=== PATIENT | female | born 1970 | race Two or more races ===

== ENCOUNTER 2017-04-12 14:51 | Emergency (ER) | payer BC ==
[2017-04-12] MEDS: METHYLPREDNISOLONE 125 MG INJ IV (17:20)
[2017-04-12] MEDS: SOD CHLORIDE 0.9% 1,000 ML IV (17:20)
[2017-04-12 17:26] LABS: ADD MAN DIFF? NO
[2017-04-12 17:27] LABS: HEMATOCRIT 43.9 % (37.0-47.0); HEMOGLOBIN 14.2 g/dl (12.0-16.0); MEAN CORPUSCULAR HEMOGLOBIN 27.7 pg (29.0-33.0); MEAN CORPUSCULAR HGB CONC 32.3 g/dl (32.0-37.0); MEAN CORPUSCULAR VOLUME 85.7 fl (82.0-101.0); PLATELET COUNT 343 10^3/UL (140-415); RED BLOOD COUNT 5.12 10^6/ul (4.20-5.40); RED CELL DISTRIBUTION WIDTH 15.2 % (11.5-14.5)
[2017-04-12 17:27] LABS: WHITE BLOOD COUNT 7.4 10^3/ul (4.8-10.8)
[2017-04-12] MEDS: ALBUTEROL 0.083% (NEB) 2.5 MG/3 ML AMP HHN (17:27)
[2017-04-12] MEDS: IPRATROPIUM (NEB) 0.5 MG/2.5 ML AMP HHN (17:27)
[2017-04-12 17:39] LABS: POSITIVE DIFF @See below
[2017-04-12 17:47] LABS: ALANINE AMINOTRANSFERASE 99 IU/L (13-69); ALBUMIN 4.6 g/dl (3.3-4.9); ALBUMIN/GLOBULIN RATIO 1.39; ALKALINE PHOSPHATASE 73 IU/L (42-121); ANION GAP 18 (8-16); ASPARTATE AMINO TRANSFERASE 97 IU/L (15-46); BLOOD UREA NITROGEN 3 mg/dl (7-20); CALCIUM 8.5 mg/dl (8.4-10.2); CARBON DIOXIDE 27 mmol/L (21-31); CHLORIDE 100 mmol/L (97-110); CREATININE 0.63 mg/dl (0.44-1.00); GLUCOSE 127 mg/dl (70-220); POTASSIUM 3.4 mmol/L (3.5-5.1); SODIUM 142 mmol/L (135-144); TOTAL PROTEIN 7.9 g/dl (6.1-8.1)
[2017-04-12 18:01] LABS: TROPONIN-I < 0.012 ng/ml (0.00-0.12)
[2017-04-12 18:33] LABS: ANISOCYTOSIS 1+ (0-0); BAND NEUTROPHILS #M 0.7 10^3/ul (0.0-0.6); BAND NEUTROPHILS % (M) 10 % (0-4); BASOPHILS % (M) 1 % (0-2); EOSINOPHILS % (M) 4 % (0-7); LYMPHOCYTES #M 3.3 10^3/ul (0.8-2.9); LYMPHOCYTES % (M) 45 % (15-51); MONOCYTE #M 0.6 10^3/ul (0.3-0.9); MONOCYTES % (M) 9 % (0-11); PLATELET ESTIMATE NORMAL; POLYCHROMASIA 1+ (0-0); SEG NEUT #M 2.3 10^3/ul (1.7-7.5); SEGMENTED NEUTROPHILS (M) % 31 % (39-77); SMUDGE%M 8 % (0-0)
== END 2017-04-12 19:13 | disposition home or self-care (01) ==
LOC: FTE 14:51
DX: R05 Cough (principal); H93.8X2 Other specified disorders of left ear; R20.0 Anesthesia of skin; R53.1 Weakness; R07.89 Other chest pain; R11.10 Vomiting, unspecified; I10 Essential (primary) hypertension; F17.210 Nicotine dependence, cigarettes, uncomplicated
CPT/HCPCS: 36415; 71045; 80053; 84484; 85025; 93005; 94664; 96374; 99285-25

== ENCOUNTER 2018-09-12 00:19 | Inpatient (IN) | payer BC ==
[2018-09-12 00:48] LABS: ADD MAN DIFF? NO
[2018-09-12 00:53] LABS: BASOPHIL # 0.1 10^3/ul (0.0-0.1); BASOPHILS % 0.4 % (0.0-2.0); HEMATOCRIT 40.6 % (37.0-47.0); LYMPHOCYTES # 2.3 10^3/ul (0.8-2.9); LYMPHOCYTES % 17.4 % (15.0-51.0); MEAN CORPUSCULAR VOLUME 84.2 fl (82.0-101.0); MEAN PLATELET VOLUME 8.9 fl (7.4-10.4); MONOCYTE # 0.2 10^3/ul (0.3-0.9); MONOCYTES % 1.6 % (0.0-11.0); NEUTROPHIL # 10.8 10^3/ul (1.6-7.5); PLATELET COUNT 334 10^3/UL (140-415); RED BLOOD COUNT 4.82 10^6/ul (4.20-5.40)
[2018-09-12 00:53] LABS: WHITE BLOOD COUNT 13.5 10^3/ul (4.8-10.8)
[2018-09-12] MEDS: SODIUM CHLORIDE 0.9% 1L BAG IV* (00:53)
[2018-09-12] MEDS: CEFEPIME 2GM/50 ML (PMX) 50 ML IVPB (00:53)
[2018-09-12] MEDS: ACETAMINOPHEN 325 MG TAB PO ×2 (00:53→10:42)
[2018-09-12] MEDS: VANCOMYCIN 1 GM (PMX) 250 ML IVPB (01:00)
[2018-09-12 01:04] LABS: ADD UMIC YES; UR ASCORBIC ACID NEGATIVE (NEGATIVE); UR BACTERIA FEW /HPF (NONE SEEN); UR BILIRUBIN (Dip) NEGATIVE (NEGATIVE); UR BLOOD (Dip) 1+ mg/dL (NEGATIVE); UR CLARITY CLOUDY (CLEAR); UR COLOR YELLOW (YELLOW); UR GLUCOSE (Dip) NEGATIVE (NEGATIVE); UR KETONES (Dip) NEGATIVE (NEGATIVE); UR LEUKOCYTE ESTERASE (Dip) 3+ Leu/ul (NEGATIVE); UR NITRITE (Dip) NEGATIVE (NEGATIVE); UR RBC 12 /HPF (0-5); UR SPECIFIC GRAVITY (Dip) 1.013 (1.003-1.030); UR SQUAMOUS EPITHELIAL CELL FEW /HPF (FEW); UR TOTAL PROTEIN (Dip) 2+ mg/dl (NEGATIVE); UR UROBILINOGEN (Dip) NEGATIVE (NEGATIVE); UR WBC > 182 /HPF (0-5)
[2018-09-12 01:12] LABS: ALANINE AMINOTRANSFERASE 17 IU/L (13-69); ALBUMIN 4.7 g/dl (3.3-4.9); ALBUMIN/GLOBULIN RATIO 1.27; ALKALINE PHOSPHATASE 66 IU/L (42-121); ANION GAP 12 (5-13); ASPARTATE AMINO TRANSFERASE 18 IU/L (15-46); BILIRUBIN,INDIRECT 0.6 mg/dl (0-1.1); BILIRUBIN,TOTAL 0.6 mg/dl (0.2-1.3); BLOOD UREA NITROGEN 9 mg/dl (7-20); CALCIUM 9.8 mg/dl (8.4-10.2); CARBON DIOXIDE 28 mmol/L (21-31); CHLORIDE 99 mmol/L (97-110); CREATININE 0.95 mg/dl (0.44-1.00); Estimated GFR > 60 mL/min (>60); GLUCOSE 191 mg/dl (70-220); POTASSIUM 4.2 mmol/L (3.5-5.1); SODIUM 139 mmol/L (135-144); TOTAL PROTEIN 8.4 g/dl (6.1-8.1)
[2018-09-12 01:13] LABS: INR 0.95; PROTIME 12.8 Sec (11.9-14.9)
[2018-09-12 01:14] LABS: PARTIAL THROMBOPLASTIN TIME 29.7 Sec (23.0-35.0)
[2018-09-12 01:23] LABS: TROPONIN-I < 0.012 ng/ml (0.000-0.120)
[2018-09-12] MEDS ORDERED: ACETAMINOPHEN 325 MG TAB PO (03:00)
[2018-09-12] MEDS ORDERED: ONDANSETRON 4 MG INJ IV ×2 (03:00→05:00)
[2018-09-12 03:35] LABS: LACTIC ACID 2.1 mmol/L (0.5-2.0)
[2018-09-12] MEDS ORDERED: NITROGLYCERIN (SL) 0.4 MG TAB SL (05:00)
[2018-09-12] MEDS ORDERED: ALBUTEROL/IPRATROPIUM (NEB) 3 ML AMP HHN (05:00)
[2018-09-12] MEDS ORDERED: MAGNESIUM HYDROXIDE 30ML CUP PO (05:00)
[2018-09-12] MEDS ORDERED: hydrALAzine 20 MG INJ IV (05:00)
[2018-09-12] MEDS ORDERED: LORAZEPAM 2 MG INJ IV (05:00)
[2018-09-12] MEDS ORDERED: DOCUSATE SODIUM 100 MG CAP PO (05:00)
[2018-09-12] MEDS ORDERED: NACL 0.9% 3 ML SYG IV (05:00)
[2018-09-12] MEDS: PIPER-TAZO 3.375 GM IV (PMX) 100 ML IVPB ×3 (05:32→17:16)
[2018-09-12] MEDS: SOD CHLORIDE 0.45% 1,000 ML IV ×2 (05:32→17:18)
[2018-09-12] MEDS: PANTOPRAZOLE (EC) 40 MG TAB PO (06:05)
[2018-09-12 06:46] LABS: LACTIC ACID 1.6 mmol/L (0.5-2.0)
[2018-09-12 07:20] LABS: FREE T4 (FREE THYROXINE) 0.99 ng/dl (0.64-1.79)
[2018-09-12] MEDS ORDERED: GLUCOSE GEL 15 GRAM TUBE BUCCAL (07:30)
[2018-09-12] MEDS ORDERED: GLUCOSE GEL 15 GRAM TUBE PO ×2 (07:30)
[2018-09-12] MEDS ORDERED: DEXTROSE 50% 50 ML SYRINGE IV ×2 (07:30)
[2018-09-12] MEDS ORDERED: GLUCAGON 1 MG INJ IM (07:30)
[2018-09-12 08:40] LABS: LACTIC ACID 1.6 mmol/L (0.5-2.0)
[2018-09-12] MEDS: NICOTINE (14 MG/24 HR) PATCH TRANSDERM (08:53)
[2018-09-12] MEDS: HEPARIN 5,000 UNIT/1 ML VIAL SC ×2 (08:56→21:11)
[2018-09-12] MEDS: INSULIN ASPART [NOVOLOG] 3 ML PEN SC ×4 (09:00→21:22)
[2018-09-12] MEDS: HYDROCODONE/APAP (5/325) TAB PO (09:07)
[2018-09-12 10:08] LABS: LACTIC ACID 1.8 mmol/L (0.5-2.0)
[2018-09-12] MEDS: morphine 2 MG INJ IV ×3 (10:44→20:00)
[2018-09-12 17:42] LABS: LACTIC ACID 1.3 mmol/L (0.5-2.0)
[2018-09-13] MEDS: PIPER-TAZO 3.375 GM IV (PMX) 100 ML IVPB ×3 (00:07→11:39)
[2018-09-13] MEDS: ACETAMINOPHEN 325 MG TAB PO (00:56)
[2018-09-13 01:40] LABS: LACTIC ACID 0.9 mmol/L (0.5-2.0)
[2018-09-13] MEDS: ACCU-CHEK XX (02:00)
[2018-09-13 06:08] LABS: ADD MAN DIFF? NO
[2018-09-13] MEDS: PANTOPRAZOLE (EC) 40 MG TAB PO (06:08)
[2018-09-13 06:10] LABS: WHITE BLOOD COUNT 9.7 10^3/ul (4.8-10.8)
[2018-09-13 06:10] LABS: BASOPHIL # 0.1 10^3/ul (0.0-0.1); BASOPHILS % 0.5 % (0.0-2.0); EOSINOPHILS % 0.1 % (0.0-7.0); HEMOGLOBIN 11.6 g/dl (12.0-16.0); LYMPHOCYTES % 30.7 % (15.0-51.0); MEAN CORPUSCULAR HGB CONC 31.4 g/dl (32.0-37.0); MEAN PLATELET VOLUME 9.2 fl (7.4-10.4); MONOCYTE # 0.9 10^3/ul (0.3-0.9); MONOCYTES % 8.9 % (0.0-11.0); NEUTROPHIL # 5.8 10^3/ul (1.6-7.5); NEUTROPHILS % 59.4 % (39.0-77.0); PLATELET COUNT 258 10^3/UL (140-415); RED CELL DISTRIBUTION WIDTH 15.4 % (11.5-14.5)
[2018-09-13 06:33] LABS: ANION GAP 6 (5-13); BLOOD UREA NITROGEN 5 mg/dl (7-20); CALCIUM 8.7 mg/dl (8.4-10.2); CARBON DIOXIDE 30 mmol/L (21-31); CHLORIDE 103 mmol/L (97-110); CHOLESTEROL 189 mg/dl (100-200); CREATININE 0.81 mg/dl (0.44-1.00); Estimated GFR > 60 mL/min (>60); GLUCOSE 126 mg/dl (70-220); HDL CHOLESTEROL 21 mg/dl (37-92); LDL CHOLESTEROL,CALCULATED 116 mg/dl; MAGNESIUM 2.2 mg/dl (1.7-2.5); PHOSPHORUS 3.7 mg/dl (2.5-4.9); POTASSIUM 4.2 mmol/L (3.5-5.1); SODIUM 139 mmol/L (135-144); TRIGLYCERIDES 260 mg/dl (0-149)
[2018-09-13 06:59] LABS: HEMOGLOBIN A1C 6.6 % (0-5.9)
[2018-09-13] MEDS: INSULIN ASPART [NOVOLOG] 3 ML PEN SC ×2 (08:32→11:43)
[2018-09-13] MEDS: HEPARIN 5,000 UNIT/1 ML VIAL SC (08:33)
[2018-09-13] MEDS: NICOTINE (14 MG/24 HR) PATCH TRANSDERM (08:35)
[2018-09-13] MEDS: SOD CHLORIDE 0.45% 1,000 ML IV (08:41)
[2018-09-13] MEDS ORDERED: CEFTRIAXONE 1 GM INJ IM (13:00)
[2018-09-13] MEDS: CEFTRIAXONE 1 GM/50 ML (PMX) 50 ML IVPB (13:07)
== END 2018-09-13 15:04 | disposition home or self-care (01) | DRG 872 ==
LOC: E/R 00:19 → PP2 02:51
DX: A41.9 Sepsis, unspecified organism (principal); N39.0 Urinary tract infection, site not specified; I10 Essential (primary) hypertension; Z85.3 Personal history of malignant neoplasm of breast; M54.9 Dorsalgia, unspecified; Z72.0 Tobacco use; E66.9 Obesity, unspecified; Z68.35 Body mass index [BMI] 35.0-35.9, adult; B96.20 Unspecified Escherichia coli [E. coli] as the cause of diseases classified elsewhere
CPT/HCPCS: 71045; 74176; 80048; 80053; 80061; 81001; 81025; 82962; 83036; 83605; 83735; 84100; 84439; 84443; 84484; 85025; 85610; 85730; 87040-91; 87086; 87400; 93005; 96365; 96366; 96368; 99285-25